=== PATIENT | female | born 1985 | race Caucasian/White ===

== ENCOUNTER 2017-06-22 20:49 | Emergency (ER) | payer MEDICAID ==
[~2017-06-22] VITALS: Ht 175.3 cm; Wt 78.2 kg
[2017-06-22 21:29] VITALS: BP 119/69
== END 2017-06-22 23:04 | disposition left against medical advice (07) ==
LOC: ER 20:49
DX: J02.9 Acute pharyngitis, unspecified (principal); R06.00 Dyspnea, unspecified; Z53.21 Procedure and treatment not carried out due to patient leaving prior to being seen by health care provider

== ENCOUNTER 2019-03-23 17:55 | Emergency (ER) | payer MEDICAID, OTHER ==
[~2019-03-23] VITALS: Ht 177.8 cm; Wt 79.5 kg
[2019-03-23 17:58] VITALS: BP 151/94
[2019-03-23] MEDS ORDERED: dexamethasone 4mg tablet PO ONE (18:55)
[2019-03-23] MEDS ORDERED: diphenhydrAMINE 25 MG/10 ML UD oral solution PO ONE (18:55)
[2019-03-23] MEDS ORDERED: naproxen 500mg tablet PO ONE (18:55)
== END 2019-03-23 19:09 ==
LOC: ER 17:56
DX: J02.8 Acute pharyngitis due to other specified organisms (principal); R07.89 Other chest pain; M79.622 Pain in left upper arm; R20.0 Anesthesia of skin; R20.2 Paresthesia of skin; F12.90 Cannabis use, unspecified, uncomplicated; F15.90 Other stimulant use, unspecified, uncomplicated; Z98.890 Other specified postprocedural states; Z88.0 Allergy status to penicillin; Z88.1 Allergy status to other antibiotic agents; Z88.5 Allergy status to narcotic agent
CPT/HCPCS: 71045; 87077; 87081; 87880; 93005; 99284; Q0163

== ENCOUNTER 2023-11-09 22:35 | Emergency (ER) | payer MEDICAID, OTHER | END 2023-11-09 23:07 | disposition left against medical advice (07) | LOC: ER 22:36 | DX: R09.89 Other specified symptoms and signs involving the circulatory and respiratory systems (principal); Z53.21 Procedure and treatment not carried out due to patient leaving prior to being seen by health care provider; Z88.1 Allergy status to other antibiotic agents; Z88.0 Allergy status to penicillin; Z88.8 Allergy status to other drugs, medicaments and biological substances ==